=== PATIENT | male | born 1940 | race Caucasian/White ===

== ENCOUNTER 2023-02-22 09:06 | Day surgery (SDC) | payer MEDICARE ==
[~2023-02-22] VITALS: Ht 188 cm; Wt 110.6 kg
[2023-02-22] VITALS (7 sets, daily range): BP systolic 118–147; BP diastolic 69–100
[2023-02-22] MEDS ORDERED: ceFAZolin/D5W- 1GM premix 50 ML IV ONE (09:50)
[2023-02-22] MEDS ORDERED: normal saline 1,000 ML IV SCH (09:50)
[2023-02-22] MEDS ORDERED: VANCOMYCIN 1,500MG in normal saline IV soln 300 ML IV ONE (09:50)
[2023-02-22 10:25] LABS: BASOPHILS % (AUTO) 0.5 % (0-1); EOSINOPHILS # (AUTO) 0.1 X10'3 (0-0.9); EOSINOPHILS % (AUTO) 1.6 % (0-6); HEMATOCRIT 39.4 % (42.0-52.0); HEMOGLOBIN 13.1 g/dl (14.0-17.9); LYMPHOCYTES # (AUTO) 1.2 X10'3 (1.1-4.8); LYMPHOCYTES % (AUTO) 14.6 % (21-51); MEAN CORPUSCULAR HEMOGLOBIN 32.1 PG (27.0-31.0); MEAN CORPUSCULAR HGB CONC 33.2 g/dL (33.0-36.5); MEAN CORPUSCULAR VOLUME 96.7 FL (78-98); MEAN PLATELET VOLUME 7.4 FL (7.4-10.4); MONOCYTES # (AUTO) 0.7 X10'3 (0-0.9); MONOCYTES % (AUTO) 7.9 % (2-12); NEUTROPHILS # (AUTO) 6.3 X10'3 (1.8-7.7); NEUTROPHILS % (AUTO) 75.4 % (42-75); PLATELET COUNT 191 X10'3 (140-440); RED BLOOD COUNT 4.08 X10'6 (4.70-6.10); RED CELL DISTRIBUTION WIDTH 14.8 % (11.5-14.5); WHITE BLOOD COUNT 8.3 X10'3 (4.5-11.0)
[2023-02-22 10:32] LABS: ANION GAP 9 (8-16); BLOOD UREA NITROGEN 23 MG/DL (7-18); BUN/CREATININE RATIO 15.2 (10.0-20.0); CALCIUM 9.4 MG/DL (8.5-10.1); CHLORIDE 104 MMOL/L (99-107); CREATININE 1.51 MG/DL (0.60-1.10); GLUCOSE 131 MG/DL (70-104); POTASSIUM 4.4 MMOL/L (3.5-5.1); SODIUM 141 MMOL/L (135-145); TOTAL CARBON DIOXIDE 28.2 MMOL/L (24-32); eGFR 45 ML/MIN
[2023-02-22] MEDS ORDERED: WARF-65 PO (10:42)
[2023-02-22] MEDS ORDERED: METO-411 PO (10:42)
[2023-02-22] MEDS ORDERED: FURO20TA4 PO (10:42)
[2023-02-22] MEDS ORDERED: GLIP2.5T3 PO (10:42)
[2023-02-22] MEDS ORDERED: LAN0.125T PO (10:42)
[2023-02-22] MEDS ORDERED: MV-M1TAB19 PO (10:42)
[2023-02-22] MEDS ORDERED: LISI5TAB22 PO (10:42)
[2023-02-22] MEDS ORDERED: vancomycin 1,000mg inj ONE (11:30)
[2023-02-22] MEDS ORDERED: midazolam 1 mg/ML 2ml injection ONE ×2 (11:30→11:31)
[2023-02-22] MEDS ORDERED: LIDOCAINE 2%/EPI 1:100,000 inj. Multi-dose 20 ML VIAL ONE (11:30)
[2023-02-22] MEDS ORDERED: fentaNYL/PF 50MCG/1 ML 2ML syringe ONE (11:30)
[2023-02-22] MEDS ORDERED: normal saline 1000ml 1,000 ML IV SCH (13:05)
== END 2023-02-22 14:32 | disposition home or self-care (01) ==
LOC: SSTAY O 09:06
PROVIDERS: ATTEND Internal Medicine Cardiovascular Disease
DX: Z45.02 Encounter for adjustment and management of automatic implantable cardiac defibrillator (principal); I42.0 Dilated cardiomyopathy; I48.20 Chronic atrial fibrillation, unspecified; I34.0 Nonrheumatic mitral (valve) insufficiency; I44.7 Left bundle-branch block, unspecified; I10 Essential (primary) hypertension; E11.9 Type 2 diabetes mellitus without complications; F10.10 Alcohol abuse, uncomplicated; Z79.01 Long term (current) use of anticoagulants; Z79.84 Long term (current) use of oral hypoglycemic drugs; Z79.899 Other long term (current) drug therapy; Z98.890 Other specified postprocedural states; Z87.891 Personal history of nicotine dependence; Z72.89 Other problems related to lifestyle; Z82.49 Family history of ischemic heart disease and other diseases of the circulatory system
CPT/HCPCS: 33264; 36415; 80048; 82948; 83735; 85025; 85610; 93005; 99152; 99153; C1882; J2250; J3010; J3370; J7030; J7040